=== PATIENT | male | born 1990 | race African-American/Black ===

== ENCOUNTER 2017-03-13 07:46 | Emergency (ER) | payer SELFPAY ==
[~2017-03-13] VITALS: Ht 177.8 cm; Wt 74.5 kg
[~2017-03-13 07:46] MED LIST: BENADRYL ALLERG25 M1 PO; LEVAQUIN 750MG750 M1 PO; PREDNISONE20 MG PO; PROAIR HFA0.09 MG/AC IH; RT ADVAIR 128 DISKUS IH
[2017-03-13 07:51] VITALS: BP 135/81; TEMP 98.3
[2017-03-13] MEDS ORDERED: PREDNISONE20 MG PO (08:23)
[2017-03-13] MEDS ORDERED: PROAIR HFA0.09 MG/AC IH (08:23)
[2017-03-13 09:03] VITALS: PULSE 76
== END 2017-03-13 09:03 | disposition home or self-care (01) ==
LOC: COL.ER 07:46
DX: J45.901 Unspecified asthma with (acute) exacerbation (principal); F17.210 Nicotine dependence, cigarettes, uncomplicated
CPT/HCPCS: J7512

== ENCOUNTER 2017-06-21 14:37 | Emergency (ER) | payer SELFPAY ==
[~2017-06-21] VITALS: Ht 177.8 cm; Wt 76.8 kg
[2017-06-21 14:38] VITALS: BP 135/95; PULSE 55; TEMP 99
[2017-06-21] MEDS ORDERED: ULTRAM 50MG TAB50 MG PO (15:15)
[2017-06-21] MEDS ORDERED: IBU600 MG PO (15:15)
[2017-06-21] MEDS ORDERED: FLEXERIL 1010 MG/TAB PO (15:15)
== END 2017-06-21 15:21 | disposition home or self-care (01) ==
LOC: COL.ER 14:37
DX: M25.511 Pain in right shoulder (principal); W18.39XA Other fall on same level, initial encounter

== ENCOUNTER 2017-09-09 09:13 | Emergency (ER) | payer SELFPAY ==
[~2017-09-09] VITALS: Ht 175.3 cm; Wt 79.5 kg
[~2017-09-09 09:13] MED LIST changes: +FLEXERIL 1010 MG/TAB PO; +IBU600 MG PO; +ULTRAM 50MG TAB50 MG PO
[2017-09-09 09:18] VITALS: BP 128/92; PULSE 66; TEMP 98.9
[2017-09-09] MEDS ORDERED: ULTRAM 50MG TAB50 MG PO (09:35)
[2017-09-09] MEDS ORDERED: NAPROSYN 2250 MG/TAB PO (09:35)
[2017-09-09] MEDS ORDERED: AMOXICILLIN 50500 MG PO (09:35)
[2017-09-10] MEDS ORDERED: NORCO 325 MG-51 TAB PO (13:42)
== END 2017-09-09 09:50 | disposition home or self-care (01) ==
LOC: COL.ER 09:13
DX: K02.9 Dental caries, unspecified (principal)

== ENCOUNTER 2017-09-10 11:35 | Emergency (ER) | payer SELFPAY ==
[~2017-09-10] VITALS: Ht 175.3 cm; Wt 79.5 kg
[~2017-09-10 11:35] MED LIST changes: +AMOXICILLIN 50500 MG PO; +NAPROSYN 2250 MG/TAB PO
[2017-09-10 11:42] VITALS: BP 131/90; PULSE 67; TEMP 98.6
[2017-09-10] MEDS ORDERED: NORCO 325 MG-51 TAB PO (13:42)
== END 2017-09-10 14:06 | disposition home or self-care (01) ==
LOC: COL.ER 11:35
DX: M27.2 Inflammatory conditions of jaws (principal); J45.909 Unspecified asthma, uncomplicated; F17.210 Nicotine dependence, cigarettes, uncomplicated
CPT/HCPCS: J1885